=== PATIENT | female | born 2000 | race Two or more races ===

== ENCOUNTER 2021-11-18 17:41 | Emergency (ER) | payer MEDICAID ==
[~2021-11-18] VITALS: Ht 165.1 cm; Wt 81.6 kg
[2021-11-18] MEDS ORDERED: AMOX500T86 PO (21:14)
[2021-11-18 21:25] VITALS: BP 116/78
== END 2021-11-18 21:30 | disposition home or self-care (01) ==
LOC: ER 17:41
DX: L03.211 Cellulitis of face (principal)

== ENCOUNTER 2024-01-07 18:41 | Emergency (ER) | payer MEDICAID ==
[~2024-01-07] VITALS: Ht 165.1 cm; Wt 107.4 kg
[~2024-01-07 18:41] MED LIST: AMOX500T86 PO
[2024-01-07 20:17] VITALS: BP 126/77; PULSE 70; RESP 16; O2SAT 97
[2024-01-07] MEDS ORDERED: ACET500T58 PO (20:42)
[2024-01-07] MEDS ORDERED: AMOX875T4 PO (20:42)
[2024-01-07] MEDS ORDERED: HUR60 MT (20:42)
== END 2024-01-07 20:48 | disposition home or self-care (01) ==
LOC: ER 18:41
DX: K04.7 Periapical abscess without sinus (principal); Z79.899 Other long term (current) drug therapy